=== PATIENT | female | born 2000 ===

== ENCOUNTER → 2019-06-23 | Outpatient (REF) ==
[2019-06-23 18:04] LABS: INFLUENZA A AMPLIFICATION NEGATIVE (NEGATIVE); INFLUENZA B AMPLIFICATION POSITIVE (NEGATIVE)
== END ==
LOC: M LAB REF 17:13
PROVIDERS: ATTEND Physician Assistant Medical
DX: R05 Cough (principal); R53.83 Other fatigue; J02.9 Acute pharyngitis, unspecified